=== PATIENT | female | born 1940 | race Caucasian/White ===

== ENCOUNTER → 2018-05-16 | Day surgery (SDC) | payer OTHER, MEDICARE ==
[~2018-05-16] MED LIST: ANUSOL-HC25 M1 RC; PREDNISONE1 MG PO
--- NOTE | 2018-05-16 11:26 | Operative Report ---
Operative/Inv Procedure Report Surgery Date: 05/16/18 Name of Procedure: Excision of lipoma left thigh Pre-Operative Diagnosis: Lipoma left thigh Post-Operative Diagnosis: Same, 6 cm diameter All subcutaneous Estimated Blood Loss: scant Surgeon/B2B Appointment Setter: Jerald DOCKERY,Zachary Yu Anesthesia: general endotracheal tube Operative/Procedure Note Note: Patient was positioned supine after successful induction of anesthesia her left upper thigh was prepped and draped in usual sterile fashion we could see and feel the mass based on the long diameter we aimed an incision along the skin lines about 5 cm long first injected local anesthetic the mid incision a 15 blade but did not deepen it because lobules of this fatty mass where immediately subdermal it took time to dissect the anterior surface of it in one piece it from the very similar surrounding subcutaneous fat as we had a rounded deeper it became easier this did not penetrate into the muscle measured at 6 cm resulting cavity was checked for hemostasis irrigated and then closed in layers using 3-0 interrupted Vicryls deep and a running subcuticular 4-0 Biosyn for the skin itself, EBL minimal lap and sponge counts correct wound expectancy clean IV fluids crystalloid complications none patient tolerated the procedure well was extubated and returned to recovery room in satisfactory condition.
== END ==
LOC: STS 02:25
DX: D21.22 Benign neoplasm of connective and other soft tissue of left lower limb, including hip (principal); M19.90 Unspecified osteoarthritis, unspecified site; M35.3 Polymyalgia rheumatica
CPT/HCPCS: 88304; J0690; J2250